=== PATIENT | female | born 1990 | race Caucasian/White ===

== ENCOUNTER → 2023-01-10 08:50 | Outpatient (BNVA) | payer OTHER, SELFPAY | PROVIDERS: Visit Provider Internal Medicine | DX: M75.42 Impingement syndrome of left shoulder (principal) | CPT/HCPCS: 99202 ==

== ENCOUNTER → 2023-01-13 08:51 | Outpatient (BNVA) | payer OTHER, SELFPAY | PROVIDERS: PCP Nurse Practitioner Primary Care; Visit Provider Internal Medicine | DX: M75.32 Calcific tendinitis of left shoulder (principal) | CPT/HCPCS: 73030; 99214 ==

== ENCOUNTER → 2023-01-20 15:09 | Outpatient (BNVA) | payer OTHER, SELFPAY | PROVIDERS: PCP Nurse Practitioner Primary Care; Visit Provider Internal Medicine | DX: M24.012 Loose body in left shoulder (principal); M75.42 Impingement syndrome of left shoulder | CPT/HCPCS: 99213 ==

== ENCOUNTER 2023-02-02 12:20 | Outpatient (REF) | payer OTHER, SELFPAY ==
--- NOTE | ~2023-02-02 | XR_ITS ---
EXAMINATION: XR SHOULDER, LEFT CLINICAL INFORMATION: Left shoulder pain COMPARISON: 01/13/2023 TECHNIQUE: AP external rotation, Grashey, scapular Y, and axillary views of the left shoulder. FINDINGS: There is no evidence of fracture or dislocation in the left shoulder but there are fluffy calcifications adjacent to rotator cuff insertion to the greater tuberosity area and consistent with calcified tendinopathy. XR/XR shoulder LT min 2V IMPRESSION: Calcific tendinopathy of the left shoulder.
== END 2023-02-02 12:21 | disposition home or self-care (01) ==
LOC: HO.HOSX 12:20
PROVIDERS: Visit Provider Orthopaedic Surgery
DX: M75.32 Calcific tendinitis of left shoulder (principal); M75.52 Bursitis of left shoulder
CPT/HCPCS: 20610; 73030; 99202; J1040

== ENCOUNTER → 2023-02-22 14:57 | Outpatient (BNVA) | payer OTHER, SELFPAY | PROVIDERS: PCP Nurse Practitioner Primary Care; Visit Provider Physician Assistant | DX: M75.32 Calcific tendinitis of left shoulder (principal); M75.52 Bursitis of left shoulder | CPT/HCPCS: 99212 ==

== ENCOUNTER 2023-03-13 09:00 | Outpatient (RCR) | payer OTHER, SELFPAY ==
--- NOTE | 2023-01-13 16:01 | MHC.PT.EP ---
[facility] [place] Office [place] Office [place] Office [address] Carol Trejo [address] [phone] F: [phone] F: [phone] F: [phone] F: [phone] Physical Therapy Plan of Care Date of Evaluation: Date of Surgery: Diagnosis: LEFT shoulder RTC impingement (likely supraspinatus) Assessment: Patient is a 32 y.o. who is referred to PT by Dr. Zachery Peterson MD with Dx of LEFT shoulder RTC impingement, likely supraspinatus due to presentation. Cannot rule out tear at this time, increased pain and inflammation present. Patient impairments include pain, weakness, limited ROM, postural imbalances. Patient current functional limitations are overhead reaching, reaching behind her back, sudden movement, pulling up pants. Patient will benefit from skilled PT to address aforementioned impairments and functional limitations to meet established goals. Frequency and Duration: The patient will be seen 2x/week for 6 weeks Short Term Goals: 3 weeks Patient presents with improved posture, L shoulder in neutral position. Patient demonstrates consistency and independence with HEP to self manage symptoms. Long-Term Goals: 6 weeks Patient presents with increased L shoulder flexion 140 degrees to perform overhead reaching into cabinets. Patient presents with increased L shoulder ER AROM 70 degrees to be able to do/doff clothes. Treatment Plan: Modalities to reduce pain, spasms and effusion. Manual therapy to restore motion and function. Therapeutic exercise to improve strength and flexibility. Neuromuscular re-education for posture and balance. Therapeutic activities to return to functional activities of daily living. Electronically signed by: Sherron Alvarado, PT, DPT Please sign and return to therapist. Thank you for your referral.
--- NOTE | 2023-03-13 14:28 | MHC.PT.DC ---
[facility] [place] Office [place] Office [place] Office [address] Carol Trejo [address] [phone] F: [phone] F: [phone] F: [phone] F: [phone] Physical Therapy Discharge Report Diagnosis: LEFT shoulder RTC impingement (likely supraspinatus) Date of Surgery: Date of Evaluation: 01/13/23 Date of Discharge: 03/13/23 Treatments to Date: 10 Cancellations to Date: No Shows to Date: Discharge Status: Achieved Goals Improved Function Independent with HEP Discharge Summary: [place] is able to perform all work tasks and it does not cause familiar pain. She is still getting end ranges of pain above 90-120 degrees of shoulder flexion or abduction, likely due to calficic tendonitis seen on imaging which patient is aware of. She demonstrates improved AROM, strength, reduction in pain and improved SPADI scores. She is appropriate for PT at this time. Electronically signed by: Sherron Alvarado, PT, DPT Please sign and return to therapist. Thank you for your referral.
== END 2023-03-13 14:28 | disposition home or self-care (01) ==
LOC: HO.PT 09:00
PROVIDERS: PCP Nurse Practitioner Primary Care; Visit Provider Internal Medicine
DX: M25.812 Other specified joint disorders, left shoulder (principal)
CPT/HCPCS: 97014; 97110; 97140; 97161

== ENCOUNTER 2023-05-15 11:08 | Outpatient (AMB) | payer OTHER, SELFPAY ==
[2023-05-15 11:28] VITALS: BP 128/76; PULSE 90; TEMP 36.2; O2SAT 97; BMI 66.6
--- NOTE | 2023-05-15 11:28 | AM.OFFWIN_ITS ---
Intake Vital Signs 05/15/23 11:28 Height 5 ft 3 in Weight 376 lb BMI 66.6 BP 128/76 Blood Pressure Location Rt brachial Position Sitting Pulse 90 Pulse Source Pulse Oximeter Temp 97.2 F Temp Source Temporal Artery Scan Pulse Oximetry (%) 97 Oxygen Delivery Method Room Air Intake Visit Reasons: [employer] DEAN ?Upper Respiratory (masked) Intake Note: pt is here for c/o possible upper resp infection Patient Tobacco Use Status: Never used Tobacco Allergies penicillamine Allergy (Mild, Verified 05/15/23 11:29) Unknown Do you need a note to return to daycare/school/sports/work: Yes HPI [employer] ?Upper Respiratory (masked) HPI Details Patient presents for a sick visit. Reporting symptoms of sinus congestion, sore throat and difficulty swallowing. Low-grade fever. No family member is sick. No recent travel. Patient reports symptoms of malaise and fatigue. PFSH Social History Patient Tobacco Use Status: Never used Tobacco Physical Exam Vital Signs: Last Vital Signs Temp 97.2 F 05/15/23 11:28 Pulse 90 05/15/23 11:28 BP 128/76 05/15/23 11:28 Pulse Ox 97 05/15/23 11:28 Oxygen Delivery Method Room Air 05/15/23 11:28 BMI result Body Mass Index 66.6 Const General: cooperative and healthy appearing Nutritional Appearance: well nourished Orientation/consciousness: patient oriented x3 Limitations: no limitations HEENT Head: Yes normal to inspection Eyes General: appearance normal, both eyes and all related structures Neck Neck: Yes normal visual inspection Chest Chest palpation & inspection: normal palpation of entire chest wall Resp Effort & Inspection: normal respiratory effort Auscultation: wheezes (Bilaterally.) Neuro General: patient oriented x3 Assessment & Plan Assessment & Plan (1) Acute bronchitis: Code(s): J20.9 - Acute bronchitis, unspecified Plan: Chest x-ray images personally reviewed by me. Antibiotics ordered. Increase fluid intake. Tylenol for aches and pains. If symptoms worsen, follow-up here for a recheck. Orders: Orders AMB Nebulizer Treatment Today J20.9 - Acute bronchitis, unspecified XR chest 2V Today R05.9 - Cough, unspecified Medications: New albuterol sulfate 2.5 mg (3 mL) inhalation ONCE 3 mL 0RF J20.9 - Acute bronchitis, unspecified Coding Level of Care Code Est Pt Level 4 (76108) Diagnoses Acute bronchitis J20.9
== END 2023-05-15 13:02 | disposition home or self-care (01) ==
PROVIDERS: PCP Nurse Practitioner Primary Care; Visit Provider Internal Medicine
DX: J20.9 Acute bronchitis, unspecified (principal)
CPT/HCPCS: 94640; 99214; J7613

== ENCOUNTER 2023-05-15 12:21 | Outpatient (REF) | payer OTHER, SELFPAY ==
--- NOTE | ~2023-05-15 | XR_ITS ---
EXAMINATION: XR CHEST CLINICAL INFORMATION: Cough COMPARISON: None available. TECHNIQUE: 2 views of the chest were obtained. FINDINGS: The cardiac and mediastinal contours are normal. The lungs are clear. No pleural effusion or. Bony structures are unremarkable. XR/XR chest 2V IMPRESSION: Unremarkable examination.
== END 2023-05-15 12:22 | disposition home or self-care (01) ==
LOC: HO.HMGCX 12:21
PROVIDERS: PCP Nurse Practitioner Primary Care; Visit Provider Internal Medicine
DX: R05.9 Cough, unspecified (principal)
CPT/HCPCS: 71046